=== PATIENT | male | born 1970 | race Two or more races ===

== ENCOUNTER → 2020-06-08 09:47 | Outpatient (CLI) | payer MEDICAID ==
--- NOTE | 2020-06-09 11:32 | ST ---
PATIENT:KRISTIN ADAME MEDICAL RECORD: [id number] SEX: M LOCATION:[facility] ORDER #: ADMISSION DATE: 06/08/20 AGE OF PATIENT: 49 REFERRING PHYSICIAN: INTERPRETING PHYSICIAN: GEOVANNA APPIAH MD DATE OF SERVICE: 06/08/2020 NUCLEAR STRESS TEST GATED: Normal with normal wall motion and normal wall thickening, calculated EF 64%. SPECT IMAGIN. Short axis view shows good uptake along the anterior wall, lateral wall and inferior wall. 2. Horizontal axis view: Horizontal axis view confirms good uptake along the anterior wall and inferior wall. 3. Vertical axis confirms good uptake along the lateral wall and septum. FINAL IMPRESSION: 1. Normal gated, normal wall motion, ejection fraction 64%. 2. Normal SPECT imaging. FINAL IMPRESSION: A gentleman with risk factors, this scan is felt low risk for any significant ongoing myocardial ischemia. Left ventricular function remains normal. Continue medical management. Risk factor modification is recommended. TRANSINT:[id number] Voice Confirmation ID: [id number] DOCUMENT ID: [id number] GEOVANNA APPIAH MD at 1132 CC: [id number] DICTATION DATE: 06/08/20 1607 [employer] DRIVER: 06/09/20 1015 DEP CLI 06/08/20 [id number] [place] [address]
== END | disposition home or self-care (01) ==
LOC: D.HCCARDIO 09:47 → D.HCCECHO 11:00
PROVIDERS: ATTEND Internal Medicine Interventional Cardiology
DX: I20.9 Angina pectoris, unspecified (principal); R06.00 Dyspnea, unspecified